=== PATIENT | female | born 1965 | race Caucasian/White ===

== ENCOUNTER 2017-03-14 22:35 | Inpatient (IN) | payer OTHER ==
--- NOTE | 2017-03-14 23:08 | EDPHY ---
H & P Stated Complaint: psych eval, sent from crisis for hallucinations, anxiety, chest tightness Time Seen by Provider: 03/14/17 22:45 HPI/ROS: HPI The patient presents from the mental health crisis Center for worsening auditory and visual hallucinations. She says throughout the entire summer she has been having hallucinations which are intermittent though have gotten progressively worse. She says they have been more intense over the last few days and that is what prompted her to be evaluated. She has been working with her outpatient psychiatrist to adjust her medications which she takes for bipolar 1 disorder, however her hallucinations have persisted. She hears voices chattering, sees shadows and felt that her house was breathing the other day. She denies any SI or HI. She has a history have hallucinations before, last episode was about 7 years ago. She says she is sleeping very little, approximately 2/7 nights a week and is otherwise follow-up and feels anxious. She occasionally has chest tightness throughout her chest when she is feeling anxious which is associated with palpitations. She is not feeling this currently REVIEW OF SYSTEMS Constitutional: No fever, no chills. Eyes: No discharge. ENT: No sore throat. Cardiovascular: No chest pain, no palpitations. Respiratory: No cough, no shortness of breath. Gastrointestinal: No abdominal pain, no vomiting. Genitourinary: No hematuria. Musculoskeletal: No back pain. Skin: No rashes. Neurological: No headache. PMHx: Bipolar 1 disorder on medication, diagnosed with paroxysmal SVT in July of 2016, started on diltiazem Soc Hx: Lives at home with her 30-year-old son who has autism, she does not work outside the home, occasional alcohol use, last this weekend, increasing tobacco use since the beginning of the summer when her hallucinations began, denies any drug use PHYSICAL General Appearance: Alert, no distress Eyes: Pupils equal and round no pallor or injection ENT, Mouth: Mucous membranes moist Respiratory: There are no retractions, lungs are clear to auscultation Cardiovascular: Regular rate and rhythm Gastrointestinal: Abdomen is soft and non-tender, no masses, bowel sounds normal Neurological: A&O, moves all extremities Skin: Warm and dry, no rashes Musculoskeletal: Neck is supple non tender Extremities: symmetrical, full range of motion Psychiatric: Patient is oriented X 3, there is no agitation Source: Patient Exam Limitations: No limitations - Personal History LMP (Females 10-55): Hysterectomy Current Tetanus/Diphtheria Vaccine: Unsure - Medical/Surgical History Hx Asthma: No Hx Chronic Respiratory Disease: No Hx Diabetes: No Hx Cardiac Disease: Yes Hx Renal Disease: No Hx Cirrhosis: No Hx Alcoholism: No Hx HIV/AIDS: No Hx Splenectomy or Spleen Trauma: No Other PMH: Breast Ca, PSVT - Social History Smoking Status: Light smoker Constitutional: Initial Vital Signs Temperature (C) 36.9 C 03/14/17 22:37 Heart Rate 88 03/14/17 22:37 Respiratory Rate 16 03/14/17 22:37 Blood Pressure 160/90 H 03/14/17 22:37 O2 Sat (%) 94 03/14/17 22:37 O2 Delivery Mode Room Air Allergies/Adverse Reactions: PLASTIC TAPE Allergy (Mild, Uncoded 03/14/17 22:43) Itching Home Medications: Medication Instructions Recorded ARIPiprazole [Abilify 2 mg (*)] 2 mg PO DAILY 03/14/17 Diltiazem [Cardizem Immediate 30 mg PO 03/14/17 Release] Ondansetron HCl 4 mg PO 03/14/17 Pantoprazole Sodium [Protonix] 40 mg PO 03/14/17 Promethazine HCl 25 mg PO 03/14/17 Ranitidine HCl 150 mg PO 03/14/17 SIMVASTATIN 10 mg PO 03/14/17 Temazepam [Restoril 15 MG (*)] 15 mg PO HSPRN PRN 03/14/17 Tizanidine HCl 4 mg PO 03/14/17 Topiramate [TOPIRAMATE] 50 mg PO BID 03/14/17 clonIDINE [Catapres (*)] 0.1 mg PO 03/14/17 traMADol [Ultram 50 mg (*)] 50 mg PO TID PRN 03/14/17 Medical Decision Making - Diagnostics EKG Interpretation: EKG: Complete interpretation has been separately recorded in the [employer] archive. Summary impression: Normal sinus rhythm Imaging Results: Imaging Impressions Chest X-Ray 03/14/17 22:57 Impression: Nothing acute. Imaging: I viewed and interpreted images myself Differential Diagnosis: This is a 51-year-old female with bipolar disorder, paroxysmal SVT on diltiazem who presents with worsening auditory and visual hallucinations for the last several months, worse over the last 1 week. She does have some chest tightness intermittently associated with anxiety. Differential diagnosis includes worsening bipolar disorder with psychosis, insomnia with psychosis, less likely drug abuse. Plan for basic labs, cardiac workup, mental health evaluation. In the ER, labs and studies were unremarkable. The patient did not require any medications. We placed the patient on an M1 hold given her hallucinations. She was seen by the mental health team and was accepted by Dr. Montoya at [address] [place] [address] for inpatient hospitalization. - Data Points Laboratory Results: Laboratory Results 03/14/17 23:10 03/14/17 23:10 03/14/17 03/14/17 03/14/17 23:10 23:10 23:00 WBC 10.34 10^3/uL H 10^3/uL (3.80-9.50) RBC 4.62 10^6/uL 10^6/uL (4.18-5.33) Hgb 14.1 g/dL g/dL (12.6-16.3) Hct 41.7 % % (38.0-47.0) MCV 90.3 fL fL (81.5-99.8) MCH 30.5 pg pg (27.9-34.1) MCHC 33.8 g/dL g/dL (32.4-36.7) RDW 12.7 % % (11.5-15.2) Plt Count 310 10^3/uL 10^3/uL (150-400) MPV 9.2 fL fL (8.7-11.7) Neut % (Auto) 52.8 % % (39.3-74.2) Lymph % (Auto) 36.0 % % (15.0-45.0) Osborne % (Auto) 8.2 % % (4.5-13.0) Eos % (Auto) 1.8 % % (0.6-7.6) Baso % (Auto) 1.0 % % (0.3-1.7) Nucleat RBC Rel Count 0.0 % % (0.0-0.2) Absolute Neuts (auto) 5.46 10^3/uL 10^3/uL (1.70-6.50) Absolute Lymphs (auto) 3.72 10^3/uL H 10^3/uL (1.00-3.00) Absolute Monos (auto) 0.85 10^3/uL H 10^3/uL (0.30-0.80) Absolute Eos (auto) 0.19 10^3/uL 10^3/uL (0.03-0.40) Absolute Basos (auto) 0.10 10^3/uL 10^3/uL (0.02-0.10) Absolute Nucleated RBC 0.00 10^3/uL 10^3/uL (0-0.01) Immature Gran % 0.2 % % (0.0-1.1) Immature Gran # 0.02 10^3/uL 10^3/uL (0.00-0.10) Sodium 140 mEq/L mEq/L (134-144) Potassium 3.7 mEq/L mEq/L (3.5-5.2) Chloride 110 mEq/L mEq/L (97-110) Carbon Dioxide 19 mEq/l L mEq/l (22-31) Anion Gap 11 mEq/L mEq/L (8-16) BUN 11 mg/dL mg/dL (7-23) Creatinine 0.7 mg/dL mg/dL (0.6-1.0) Estimated GFR > 60 Glucose 89 mg/dL mg/dL (70-100) Calcium 9.8 mg/dL mg/dL (8.5-10.4) Troponin I < 0.012 ng/mL ng/mL (0.000-0.034) Urine Opiates Screen NEGATIVE (NEGATIVE) Urine Barbiturates NEGATIVE (NEGATIVE) Ur Phencyclidine Scrn NEGATIVE (NEGATIVE) Ur Amphetamine Screen NEGATIVE (NEGATIVE) U Benzodiazepines Scrn NON-NEGATIVE H (NEGATIVE) Urine Cocaine Screen NEGATIVE (NEGATIVE) U Marijuana (THC) Screen NON-NEGATIVE H (NEGATIVE) Ethyl Alcohol < 10 mg/dL mg/dL (0-10) Medications Given: Clonidine (Catapres) 0.1 mg PO HS PRN PRN Reason: ANXIETY/SLEEP Stop: 09/11/17 02:53 Last Admin: 03/15/17 03:30 Dose: 0.1 mg Temazepam (Restoril) 15 mg PO HS PRN PRN Reason: Sleep/Insomnia Stop: 09/11/17 02:53 Last Admin: 03/15/17 03:30 Dose: 15 mg Tramadol HCl (Ultram) 25 mg PO TID PRN PRN Reason: Pain, Moderate Able to Take PO Stop: 09/11/17 02:53 Last Admin: 03/15/17 03:26 Dose: 25 mg Departure - Departure Disposition: [facility] IP Clinical Impression: Acute psychosis, Bipolar 1 disorder, Hallucinations Chest pain Qualifiers: Chest pain type: unspecified Qualified Code(s): R07.9 - Chest pain, unspecified Condition: Fair
[2017-03-14 23:19] LABS: % IMMATURE GRANULYOCYTES 0.2 % (0.0-1.1); ABSOLUTE IMMATURE GRANULOCYTES 0.02 10^3/uL (0.00-0.10); ADD DIFF? NO; ADD MORPH? NO; ADD SCAN? NO; ATYPICAL LYMPHOCYTE FLAG 10 (0-99); FRAGMENT RBC FLAG 0 (0-99); HEMATOCRIT 41.7 % (38.0-47.0); HEMOGLOBIN 14.1 g/dL (12.6-16.3); LEFT SHIFT FLG 0 (0-99); LIPEMIA HEMOLYSIS FLAG 90 (0-99); MEAN CELL HEMOGLOBIN 30.5 pg (27.9-34.1); MEAN CELL HEMOGLOBIN CONCENTR. 33.8 g/dL (32.4-36.7); MEAN CELL VOLUME 90.3 fL (81.5-99.8); MEAN PLATELET VOLUME 9.2 fL (8.7-11.7); PLATELET CLUMPS FLAG 0 (0-99); PLATELET COUNT 310 10^3/uL (150-400); RED BLOOD CELL COUNT 4.62 10^6/uL (4.18-5.33); RED CELL DISTRIBUTION WIDTH 12.7 % (11.5-15.2)
--- NOTE | 2017-03-14 23:24 | CPEKG ---
Heart Rate: 82 RR Interval: 732 P-R Interval: 176 QRSD Interval: 78 QT Interval: 360 QTC Interval: 421 P [place]: 50 QRS [place]: 14 T Wave [place]: 71 EKG Severity - NORMAL ECG - EKG Impression: SINUS RHYTHM Electronically Signed By: Maude Aragon 16-Mar-2017 08:44:37
[2017-03-14 23:31] LABS: ANION GAP 11 mEq/L (8-16); CALCIUM 9.8 mg/dL (8.5-10.4); CARBON DIOXIDE 19 mEq/l (22-31); CHLORIDE 110 mEq/L (97-110); CREATININE 0.7 mg/dL (0.6-1.0); ETHANOL SERUM < 10 mg/dL (0-10); GLOMERULAR FILTRATION RATE > 60; GLUCOSE 89 mg/dL (70-100); POTASSIUM 3.7 mEq/L (3.5-5.2); SODIUM 140 mEq/L (134-144)
[2017-03-14 23:43] LABS: TROPONIN I < 0.012 ng/mL (0.000-0.034)
[2017-03-15] MEDS ORDERED: traMADol 50 MG TAB PO PRN (02:54)
[2017-03-15] MEDS ORDERED: TEMAZEPAM 15 MG CAP PO PRN (02:54)
[2017-03-15] MEDS ORDERED: ACETAMINOPHEN 325 MG TAB PO PRN (02:57)
[2017-03-15] MEDS ORDERED: MAGNESIUM HYDROXIDE 30 ML UDCUP PO PRN (02:57)
[2017-03-15] MEDS ORDERED: MELATONIN 3 MG TAB PO PRN (02:57)
[2017-03-15] MEDS ORDERED: PRAVASTATIN SODIUM 20 MG TAB PO SCH ×2 (09:00→21:00)
[2017-03-15] MEDS ORDERED: TOPIRAMATE 25 MG TAB PO SCH (09:00)
[2017-03-15] MEDS ORDERED: PROMETHAZINE HCL 25 MG TAB PO PRN (09:02)
[2017-03-15] MEDS ORDERED: SUMAtriptan 6 MG/0.5 ML VIAL SC PRN ×2 (09:04→09:13)
[2017-03-15] MEDS ORDERED: ALBUTEROL HFA ANES ONLY 200 PUFFS/8.5 GM MDI IH PRN (09:05)
[2017-03-15] MEDS ORDERED: ALBUTEROL 200 PUFFS/18 GM MDI IH PRN (09:13)
--- NOTE | 2017-03-15 09:40 | BAPA ---
[f rep st] ADMISSION PSYCHIATRIC ASSESSMENT DATE OF SERVICE: 03/15/2017 CHIEF COMPLAINT: The patient is a 51-year-old female with bipolar mood disorder , whose chief complaint to me today is "it started this summer." HISTORY OF PRESENT ILLNESS: The patient has a history of bipolar mood disorder dating back to at least 1995, but probably all of her adult life. She relates that she has had multiple hospitalizations for her bipolar mood disorder. I check our chart back to the beginning of the [employer] records--I am unable to access the [facility] [employer] [facility] [facility] today--and I do not find any previous inpatient psychiatric hospital stays with us for this patient. She indicates that she has been here in the past. It may have been prior to 2009. She is followed by [facility], and relates that starting early this summer, her mood became elevated. She says there was no clear exacerbating cause. Her daughter did get , just this past weekend, and she has been involved in preparations for this, so there was at least that change in her life over the past few months. At any rate, she has been experiencing decreased need for sleep, and increased energy. She has also been experiencing abnormal perceptions. She tells me that she hears "whispers" inside her head at times. She feels that "my house is breathing." She has some wavy lines in her vision. She has migraine headaches and admits that some of this might be related to her migraine headaches. She came from her residence to the emergency room, and was evaluated. She was thought to be significantly disabled. She has denied dangerousness to herself or others, but she was thought to be ill enough to benefit significantly from an inpatient hospital stay. CURRENT REVIEW OF SYSTEMS: She describes her mood currently at "high." She tells me that she slept last night, but prior to this had not slept for 3 days. Her energy is elevated. Her concentration is down. Her appetite has been down and she has lost weight. As noted, she endorses auditory hallucinations including whispers. She endorses wavy lines in her vision and odd things out of the corner of her eye as visual hallucinations. She denies suicidal thinking. She denies homicidal thinking. She initially endorses feeling anxious and nervous, but as we talk about it, she clarifies that she feels "restless." She is not scared of anything in particular, and is not having more anxiety, but more agitation and internal energy that she does not know what to do with. SOCIAL HISTORY: She endorses smoking cigarettes. She had quit, but with this manic exacerbation, started re-smoking cigarettes about 1/2 pack per day. She denies alcohol use. She admits to using cannabis 1 time. Her urine tox screen was positive for cannabis. ALLERGIES: She denies any medication allergies, but says she has allergy to tape. CURRENT MEDICATIONS: She is on multiple medications, and I do not think I have a complete list at this point in time. She is on 300 mg of Lamictal at bedtime , according to her history, but according to the chart, it is 200 mg. she is on temazepam, Imitrex injections, and multiple GI medicines, as well as multiple antihypertensive medicines. I will be working on clarifying her medication regimen. PAST MEDICAL HISTORY: She has past medical history of multiple problems. She had breast cancer and cholecystitis with a cholecystectomy in 2009. Her breast cancer was in 2009 and she had bilateral mastectomies and reconstructive surgery. She has cervical pain, and she tells me that she may need a neck fusion at some point in time. She has history of migraine headaches. There is a history of hypertension. She has a history of a pulmonary embolus. She is also listed as having reactive airway disease. She has had 5 pregnancies, 3 live births, and 2 miscarriages. PAST PSYCHIATRIC HISTORY: This is remarkable for the diagnosis of bipolar mood disorder in 1995. She is currently followed at the [facility]. MENTAL STATUS EXAMINATION: She is awake and alert. She conducts the interview lying down on her back and it is difficult for her to sit up. Her speech is slightly rapid, and a little bit pressured, but I am able to interrupt her. She has many lapses in memory that she notices, not being able to remember certain names, or certain details and she gets frustrated by this during the interview. Her speech style is vague and impressionistic. Her thought processes are circumstantial, and she takes a very long time to get to a point, but she does usually get to the point. She does not have tangentiality, nor flight of ideas. She does not appear to be responding to internal stimuli during the interview and denies them when I ask. Her insight and judgment are both poor. IMPRESSION: The patient is a 51-year-old female with bipolar mood disorder and multiple medical problems. We will admit her and see if we can simplify her medication regimen, which currently involves multiple different medications, taken multiple different ways, at multiple different times of each day. By her history, she has usually stabilized well when in an inpatient setting, we hope that will again be the case today. DIAGNOSES: 1. Bipolar mood disorder, most recent episode manic. 2. Nicotine dependence. 3. Cannabis abuse. 4. History of breast cancer. 5. Chronic cervical pain. 6. G5, P3, SAB2. 7. Migraine headaches. 8. History of pulmonary embolus. 9. Reactive airway disease. 10. Hypertension. 11. Gastrointestinal problems. PLAN: 1. Admit on 72-hour mental health hold that expires 03/18/2017 at 0045. 2. Collect collateral information. 3. Work on restarting medications and simplifying, if possible. 4. Coordinate with outpatient care team about ongoing care. /[id number]/MODL MTDD
[2017-03-15] MEDS: PANTOPRAZOLE SODIUM 40 MG TAB PO SCH (10:39)
[2017-03-15] MEDS: MAG HYDROX/AL HYDROX/SIMETH 30 ML UDCUP PO PRN (10:39)
[2017-03-15] MEDS: ARIPiprazole 5 MG TAB PO SCH (11:34)
--- NOTE | 2017-03-15 16:31 | BCON ---
[f rep st] BEHAVIORAL HEALTH CONSULTATION INTERNAL MEDICINE CONSULTATION DATE OF CONSULTATION: 03/15/2017 REFERRING PHYSICIAN: Terence Montoya MD REASON FOR REFERRAL: Medical clearance for inpatient behavioral health stay. HISTORY OF PRESENT ILLNESS: This patient came to the emergency department from the [facility] with worsening auditory and visual hallucinations. These had been getting worse through the summer, and acutely worse over the previous few days. She had medication changes per her outpatient psychiatrist including the initiation of topiramate. She was evaluated by the mental health team and admitted for further psychiatric care. She currently complains of feeling numbness, especially bilaterally below the elbows and in her legs. She also has tingling and is unclear whether or not this has gotten worse since the initiation of topiramate. She describes migraine headaches, but none recently, with bizarre neurologic effects for which she is under the care of a neurologist. She thinks the numbness may be due to cervical spine disease, for which she thinks she will need surgery at some point. PAST MEDICAL HISTORY: 1. Breast cancer. 2. Bipolar disorder. 3. Paroxysmal supraventricular tachycardia. 4. Migraine headaches. 5. Cervical spine degenerative disease. 6. Possible peripheral neuropathy. 7. History of pulmonary embolus. 8. Reactive airways disease. 9. Hypertension. 10. Recent difficulty swallowing. 11. Dyslipidemia. PAST SURGICAL HISTORY: 1. Bilateral mastectomy and breast reconstruction. 2. Hysterectomy due to family history of cancer, done at the same time as the mastectomies. 3. Cholecystectomy. She reports that the gallbladder was nicked when the hysterectomy was done. 4. Upper endoscopy. MEDICATIONS: Prior to admission: 1. Aripiprazole 2 mg p.o. daily. 2. Diltiazem 30 mg p.o., unclear, perhaps t.i.d. or q.i.d. 3. Ondansetron 4 mg p.o. p.r.n. 4. Pantoprazole 40 mg p.o. daily. 5. Promethazine 25 mg p.o. daily p.r.n. 6. Ranitidine 150 mg p.o. twice daily. 7. Simvastatin 10 mg p.o. daily. 8. Temazepam 15 mg p.o. at bedtime p.r.n. 9. Tizanidine 4 mg p.o. daily. 10. Topiramate 50 mg p.o. b.i.d. 11. Clonidine 0.1 mg p.o. b.i.d. 12. Tramadol 50 mg p.o. t.i.d. p.r.n. ALLERGIES: There is an allergy listed to plastic tape. SOCIAL HISTORY: She lives at home with her 30-year-old son who has autism. She does not work. She has occasional alcohol use. She has recently resumed smoking, coincident with what appears to be a flare of her bipolar disorder. FAMILY HISTORY: Noncontributory other than history of cancer. REVIEW OF SYSTEMS: She reports difficulty swallowing, and is at the point where she needs to crush pills that she takes at night; otherwise, she will regurgitate them; she says if they are actual pills, they get stuck in her esophagus. However, she reports that she has had upper endoscopy recently with nothing abnormal seen. She reports numbness to light touch and even to pinprick in her upper extremities below the elbow and in her lower extremities below the knees. She reports very little appetite and weight loss in recent weeks. She reports normal bowel movements, however, and as long as she crushes her pills at night, she does not have vomiting. She denies dysuria or urinary frequency. She denies cough or dyspnea though she had a sensation of chest tightness while in the emergency department. She reports she often feels cold but does not feel hot. She reports right knee pain and swelling; she says she twisted it during her daughter's wedding last weekend. It has not been getting better or worse, but staying constant. Otherwise, a 10-point review of systems is negative. PHYSICAL EXAM: VITAL SIGNS: Blood pressure at 3:00 this morning was 151/80, heart rate was 77, respiratory rate was 14, oxygen saturation was 95% on room air. Temperature was 36.9 degrees centigrade. Her weight is 69.5 kg for a body mass index of 25.5. GENERAL: This is a well-nourished, well-developed woman, appears her chronologic age. Cooperative and in no acute distress. HEENT: Extraocular movements are intact. Pupils are equal, round, and reactive to light. Mucous membranes are moist. Dentition is in good condition. She has a mildly crowded airway, Mallampati class 2. NECK: Supple. There is possible thyromegaly on the left lobe which feels nodular. HEART: There is a regular rate and rhythm with no murmurs, rubs, or gallops. LUNGS: Clear to auscultation bilaterally. ABDOMEN: Soft, nontender, nondistended with normoactive bowel sounds. EXTREMITIES: There is no cyanosis , clubbing, or edema. Radial and dorsalis pedis pulses are 2+ bilaterally. NEUROLOGIC: She is alert and oriented x3. Cranial nerves 2-12 are grossly intact. Her hand apprentice technician on the left is 4/5. There is otherwise no focal weakness. She reports no sensation to palpation in her lower extremities below the knees. Gait is within normal limits. LABORATORY STUDIES: Drawn in the emergency department: Serum chemistry revealed a slightly low carbon dioxide at 19, and otherwise was within normal limits. Troponin-I was undetectable. Hematology revealed an elevated white blood cell count at 10.34. There was no left shift. There was a predominance of lymphocytes and monocytes. Toxicology screen in the serum was negative for ethyl alcohol, and the urine was non-negative for benzodiazepines and marijuana. ASSESSMENT/RECOMMENDATIONS: 1. Mental health issues. Pending further evaluation and management per Psychiatry and the mental health team. 2. Weight loss and report of a goiter that she says was seen on cervical spine imaging. I will add a TSH onto the labs that were drawn yesterday to rule out thyroid disease as contributing to either the neuropathic symptoms or her mental status. 3. Neuropathy. Unclear whether this is cervical or peripheral. In either case , it seems atypical. I will add a B12 onto labs that were drawn yesterday. 4. Hypertension. Advise continuation of diltiazem as well as clonidine. If her blood pressure remains elevated or if she has elevated heart rate, further evaluation and altering medications might be indicated. The diltiazem has not been prescribed on her home medication list; 30 mg immediate release daily would not be adequate medication. I will discuss this further with the patient and order it as per her usual prescription. 5. Supraventricular tachycardia. Currently without symptoms. 6. Neuropathic symptoms which are atypical, but she has distinct muscle weakness in the left hand, likely component of the cervical spine degenerative disc disease. Regarding this as well as migraines and cervical spine disease, she can follow up with her outpatient neurologist, Dr. Simpson. It is conceivable that the topiramate has been adding to her subjective symptoms of tingling. 7. Right knee pain, status post injury on the weekend. It does not appear to be impairing her mobility. Continue tramadol on an as-needed basis, and she can follow up with primary care or see an orthopedist after her discharge. 8. I see no medical contraindications to this patient's continued stay in the inpatient behavioral health unit or to any psychiatric medications or procedures. Thank you very much for including me in the care of this patient. Please do not hesitate to contact me or the hospitalist service should there be need for further medical evaluation. /[id number]/MODL MTDD
[2017-03-15] MEDS ORDERED: lamoTRIgine 100 MG TAB PO SCH ×2 (21:00)
[2017-03-15] MEDS ORDERED: RANITIDINE HCL 150 MG/10 ML UDCUP PO PRN (21:00)
[2017-03-15] MEDS: TOPIRAMATE 25 MG PO SCH (21:13)
[2017-03-15] MEDS: DILTIAZEM CD 120 MG CAP PO SCH (21:14)
[2017-03-15] MEDS: RANITIDINE HCL 150 MG/10 ML UDCUP PO PRN (21:17)
[2017-03-15] MEDS: ONDANSETRON DISINTEGRATING 4 MG TAB PO PRN (21:17)
[2017-03-15] MEDS: PRAVASTATIN SODIUM 10 MG TAB PO SCH (21:19)
[2017-03-16] MEDS: PANTOPRAZOLE SODIUM 40 MG TAB PO SCH (08:40)
[2017-03-16] MEDS: RANITIDINE HCL 150 MG/10 ML UDCUP PO PRN ×2 (08:43→20:36)
[2017-03-16] MEDS ORDERED: PANTOPRAZOLE SODIUM 40 MG TAB PO SCH (09:00)
[2017-03-16] MEDS: DILTIAZEM CD 120 MG CAP PO SCH (09:26)
[2017-03-16] MEDS: ARIPiprazole 5 MG TAB PO SCH (09:26)
[2017-03-16] MEDS ORDERED: OLANZapine 2.5 MG TAB PO PRN (11:06)
--- NOTE | 2017-03-16 11:17 | SOAPPROG ---
SOAP Progress Note Assessment/Plan: Assessment: Bipolar Mood Disorder, MRE Mixed (v manic) Ms. Acevedo describes mixed benedict today. Sadness plus agitation. She has tried lithium in the past and found it was not a good choice for her because it increased the frequency of her migraine headaches. Depakote and Tegretol are challenging to use when taking lamotrigine. Try olanzapine at HS, and discontinue aripiprazole. Consider cross tapering back to Abilify once stable. Increase lamotrigine, goal dose is 300 mg HS. Plan: Add olanzapine 5 mg HS and a prn dose as well Tramadol for chronic neck pain Increase lamotrigine to 225 mg at HS. Goal dose is 300 mg HS Consider Voluntary status when [facility] expires. 03/16/17 11:30 Subjective: "Not having a good day." "I'm more manic." "I'm pissed off." "My emotions don't match up." "Why am I fine one moment and not the next?" Slept well last night but does not feel well today. Endorses sadness and depressed mood but then feels manic/elevated. Discussed Mixed episodes of Bipolar, and Ms. Acevedo thinks this could be what she is going through. Abilify has not helped so far. Discussed difficulty finding good dose of Abilify because of it's mechanism of action as a partial agonist. Discussed she might do better with a more classic dopamine antagonist. We agree to try olanzapine. She has been on this in the past and it has helped mood. It does increase appetite so we will not want to continue this indefinitely. Pt also reports that she has had low TSH tests in the past. This can be from stress. Hyperthyroidism unlikely, but will recheck. Objective: Vital Signs Temp Pulse Resp BP Pulse Ox 36.5 C 67 14 115/66 95 03/16/17 08:34 03/16/17 09:26 03/16/17 08:34 03/16/17 09:26 03/16/17 08:34 Medications Generic Name Dose Route Start Last Admin Trade Name Freq PRN Reason Stop Dose Admin Clonidine 0.1 mg 03/15/17 16:00 03/16/17 09:27 Catapres PO 09/11/17 15:59 0.1 mg TID ASHLEIGH Diltiazem HCl 120 mg 03/15/17 15:45 03/16/17 09:26 Cardizem Er Q24hr PO 09/11/17 15:44 120 mg DAILY ASHLEIGH Lamotrigine 200 mg 03/16/17 11:08 Lamictal PO 09/11/17 20:59 HS [facility] Pravastatin Sodium 10 mg 03/15/17 21:00 03/15/17 21:19 Pravachol PO 09/11/17 20:59 10 mg HS [facility] Pantoprazole Sodium 40 mg 03/15/17 10:30 03/16/17 08:40 Protonix PO 09/11/17 10:29 40 mg DAILY ASHLEIGH Ranitidine HCl 150 mg 03/15/17 10:39 03/16/17 08:43 Zantac PO 09/11/17 10:38 150 mg BID PRN GI DISTRESS Topiramate 25 mg 03/15/17 21:00 03/15/17 21:13 Topamax Sprinkles PO 09/11/17 20:59 25 mg HS [facility] MSE Awake, alert, well groomed and pleasant with me today. Speech is rapid and a little pressured today, but more interruptible than yesterday Thoughts processes linear today Does not appear to respond to internal stimuli during interview with me today. Fair insight and judgment ICD10 Worksheet Patient Problems: Problems Problem Status Onset Acute psychosis Acute Bipolar 1 disorder Acute Chest pain Acute Hallucinations Acute
[2017-03-16] MEDS: traMADol 50 MG TAB PO PRN (13:06)
[2017-03-16] MEDS: ONDANSETRON DISINTEGRATING 4 MG TAB PO PRN (20:36)
[2017-03-16] MEDS: OLANZapine 5 MG TAB PO SCH (21:09)
[2017-03-16] MEDS: lamoTRIgine 25 MG TAB PO SCH (21:09)
[2017-03-16] MEDS: lamoTRIgine 100 MG TAB PO SCH (21:09)
[2017-03-16] MEDS: TOPIRAMATE 25 MG PO SCH (21:09)
[2017-03-16] MEDS: PRAVASTATIN SODIUM 10 MG TAB PO SCH (21:09)
[2017-03-17] MEDS: RANITIDINE HCL 150 MG/10 ML UDCUP PO PRN ×2 (06:31→20:47)
[2017-03-17] MEDS: DILTIAZEM CD 120 MG CAP PO SCH (08:38)
[2017-03-17] MEDS: PANTOPRAZOLE SODIUM 40 MG TAB PO SCH (08:38)
[2017-03-17] MEDS: MAG HYDROX/AL HYDROX/SIMETH 30 ML UDCUP PO PRN (09:09)
--- NOTE | 2017-03-17 15:20 | SOAPPROG ---
SOAP Progress Note Assessment/Plan: Assessment: 51yo CF w/hx of BMD/mixed mood sxs 03/17/17 17:54 per staff, slept 8.5hr. asked for AG privs. attending gps reports not feeling she will be ready for d/c on 03/19. wants to get as well as possible while here, leyda since has already arranged for care of her 30yo autistic son at home. in past when thought she felt okay, returned home, then "crashed" b/c actually wasn't okay. feels still with affective lability. "still out of control with my emotions". ie /when felt she had too much food at lunch, began to cry about homeless people. also found self tearful when working on art project depicting trees, but "I don' t feel connected to that emotion" and notes no reason to be tearful over tree art. reports no s/e to zyprexa which started last pm. no AH since starting this. shared that she has +hx of severe migraine GODINEZ, but has had less migraines since inpt here. has had EEG outpt, which was neg. b/c experienced periods of "zoning out" or pausing mid-sentence then continuing. c/o experiencing TV/lights being "irritatingly brighter" and also "hypersensitive to smells". notes episodically experiencing a "woosh" feeling internally, as if just having moved backwards or dropping/falling. MSE: casually dressed, engaged, nml rate/vol speech, talkative but not pressured , good eye contact, mood "positive but anxious", affect full, thoughts linear with expressed somatic concerns as above, no si/hi, denied any AH today or since starting zyprexa. has recently experienced +VH of figure on R side ( thinks only occurs on R) for few seconds, startled her but not scary, i/j- seem intact, PLAN: cont current meds, cont zyprexa which was added yesterday. overall w/ improving BMD sxs and psychosis additionally has neurologic complaints, ?pseudobulbar affect sxs, +hx atypical migraine, ?atyp sz , reports neg eeg but consider sz monitor unit, etc or r/o conversion d /o. consider d/w outpt neurologist or neuro consult B12 244. low nml. will add po for few days. Objective: Vital Signs Temp Pulse Resp BP Pulse Ox 36.9 C 60 15 122/61 H 96 03/17/17 00:30 03/17/17 08:00 03/17/17 00:30 03/17/17 08:00 03/17/17 00:30 - Pending Discharge Pending Discharge Within 24 Hours: No Pending Discharge Within 48 Hours: No ICD10 Worksheet Patient Problems: Problems Problem Status Onset Acute psychosis Acute Bipolar 1 disorder Acute Chest pain Acute Hallucinations Acute
[2017-03-17] MEDS: traMADol 50 MG TAB PO PRN (18:17)
[2017-03-17] MEDS: ONDANSETRON DISINTEGRATING 4 MG TAB PO PRN (20:47)
[2017-03-17] MEDS: OLANZapine 5 MG TAB PO SCH (21:03)
[2017-03-17] MEDS: lamoTRIgine 100 MG TAB PO SCH (21:03)
[2017-03-17] MEDS: PRAVASTATIN SODIUM 10 MG TAB PO SCH (21:03)
[2017-03-17] MEDS: lamoTRIgine 25 MG TAB PO SCH (21:03)
[2017-03-17] MEDS: TOPIRAMATE 25 MG PO SCH (21:03)
[2017-03-18] MEDS: PANTOPRAZOLE SODIUM 40 MG TAB PO SCH (08:47)
[2017-03-18] MEDS: DILTIAZEM CD 120 MG CAP PO SCH (08:47)
[2017-03-18] MEDS: CYANO/VITAMIN B12 1000 MCG TAB PO SCH (08:48)
[2017-03-18] MEDS ORDERED: traMADol 50 MG TAB PO PRN (14:43)
[2017-03-18] MEDS: traMADol 50 MG TAB PO PRN (16:59)
[2017-03-18] MEDS: RANITIDINE HCL 150 MG/10 ML UDCUP PO PRN (20:48)
[2017-03-18] MEDS: ONDANSETRON DISINTEGRATING 4 MG TAB PO PRN (20:48)
[2017-03-18] MEDS: OLANZapine 5 MG TAB PO SCH (21:10)
[2017-03-18] MEDS: lamoTRIgine 100 MG TAB PO SCH (21:11)
[2017-03-18] MEDS: PRAVASTATIN SODIUM 10 MG TAB PO SCH (21:11)
--- NOTE | 2017-03-19 00:34 | SOAPPROG ---
SOAP Progress Note Assessment/Plan: Assessment: 51yo CF w/hx of BMD/mixed mood sxs 03/17/17 17:54 per staff, slept 8.5hr. asked for AG privs. attending gps reports not feeling she will be ready for d/c on 03/19. wants to get as well as possible while here, leyda since has already arranged for care of her 30yo autistic son at home. in past when thought she felt okay, returned home, then "crashed" b/c actually wasn't okay. feels still with affective lability. "still out of control with my emotions". ie /when felt she had too much food at lunch, began to cry about homeless people. also found self tearful when working on art project depicting trees, but "I don' t feel connected to that emotion" and notes no reason to be tearful over tree art. reports no s/e to zyprexa which started last pm. no AH since starting this. shared that she has +hx of severe migraine GODINEZ, but has had less migraines since inpt here. has had EEG outpt, which was neg. b/c experienced periods of "zoning out" or pausing mid-sentence then continuing. c/o experiencing TV/lights being "irritatingly brighter" and also "hypersensitive to smells". notes episodically experiencing a "woosh" feeling internally, as if just having moved backwards or dropping/falling. MSE: casually dressed, engaged, nml rate/vol speech, talkative but not pressured , good eye contact, mood "positive but anxious", affect full, thoughts linear with expressed somatic concerns as above, no si/hi, denied any AH today or since starting zyprexa. has recently experienced +VH of figure on R side ( thinks only occurs on R) for few seconds, startled her but not scary, i/j- seem intact, PLAN: cont current meds, cont zyprexa which was added yesterday. overall w/ improving BMD sxs and psychosis additionally has neurologic complaints, ?pseudobulbar affect sxs, +hx atypical migraine, ?atyp sz , reports neg eeg but consider sz monitor unit, etc or r/o conversion d /o. consider d/w outpt neurologist or neuro consult B12 244. low nml. will add po for few days. 03/18/17 17:25 reports had some heartburn this am. no AH since starting zyprexa, and no s/e. "spacey, floaty" episodes still occurring reports she "smiled and giggled" when talking about [place] flooding to a peer, found this an inappropriate affect for the content of conversation and didn't think it funny, but again noting emotional disconnect with affect. again reiterates she does not feel ready for d/c tomorrow. denied any other med s/e. mse: cooperative, engaged, good ec, nml speech, mood "good", affect appropriate to conversation, thoughts linear but w/somatic concerns as noted, no si/hi, and reports no ah/vh today. i/j intact PLAN: incr lamictal to 300mg qhs which was reported prior home dose and reports compliant d/c topamax 25mg cont zyprexa 5mg hs. plan resched appt 03/19 and cont inpt for another day or 2, not feeling ready emotionally and with med changes, possible neuro consult Objective: Vital Signs Temp Pulse Resp BP Pulse Ox 36.7 C 64 16 110/64 98 03/18/17 00:30 03/18/17 15:54 03/18/17 15:54 03/18/17 21:11 03/18/17 15:54 - Time Spent With Patient Time Spent With Patient: 14min - Pending Discharge Pending Discharge Within 24 Hours: No Pending Discharge Within 48 Hours: No ICD10 Worksheet Patient Problems: Problems Problem Status Onset Acute psychosis Acute Bipolar 1 disorder Acute Chest pain Acute Hallucinations Acute
[2017-03-19] MEDS: RANITIDINE HCL 150 MG/10 ML UDCUP PO PRN ×2 (08:43→20:14)
[2017-03-19] MEDS: DILTIAZEM CD 120 MG CAP PO SCH (10:03)
[2017-03-19] MEDS: PANTOPRAZOLE SODIUM 40 MG TAB PO SCH (10:03)
[2017-03-19] MEDS: CYANO/VITAMIN B12 1000 MCG TAB PO SCH (10:03)
[2017-03-19] MEDS: traMADol 50 MG TAB PO PRN ×2 (10:59→18:55)
--- NOTE | 2017-03-19 11:08 | SOAPPROG ---
SOAP Progress Note Assessment/Plan: Assessment: Bipolar Mood Disorder, MRE Mixed (v manic) Ms. Acevedo has improved. Externally her affect appears to be back to normal. Internally, her mood remains a problem, especially with lability of mood which she finds uncomfortable and distressing. No psychosis We will try increasing olanzapine to see if this helps stabilize the mood any better. Plan: Increase olanzapine to 7.5 mg HS Tramadol for chronic neck pain Continue lamotrigine 300 mg at HS. Decrease clonidine to 0.1 mg BID OK for AG. OK to sharve. Voluntary status 03/19/17 11:14 Subjective: "I literally have a headache every single day." "I'm worried about getting depressed." "Emotional disconnect." "I don't understand why the medication hasn't stopped that." Slept well, 9.5 hours last night. Denies ongoing abnormal internal stimuli. Thinks the olanzapine has stopped the psychosis. Main complaint today is about her "emotional disconnection." Ms. Acevedo feels her emotions get away from her too quickly. She feels sad when she acts happy. She describes being tearful when she is not sad. We discuss that this may be part of her Bipolar Mood Disorder that will take more time to improve. Also asks about episodes of "spacing out". She is aware of these. She "comes back" immediately when someone addresses her. These do not sound like seizures. I ask her to bring this up with her Neurologist. Objective: Vital Signs Temp Pulse Resp BP Pulse Ox 36.6 C 66 14 94/58 L 95 03/19/17 00:30 03/19/17 00:30 03/19/17 00:30 03/19/17 00:30 03/19/17 00:30 Medications Generic Name Dose Route Start Last Admin Trade Name Freq PRN Reason Stop Dose Admin Diltiazem HCl 120 mg 03/15/17 15:45 03/19/17 10:03 Cardizem Er Q24hr PO 09/11/17 15:44 120 mg DAILY ASHLEIGH Lamotrigine 300 mg 03/18/17 21:00 03/18/17 21:11 Lamictal PO 09/14/17 20:59 300 mg HS ASHLEIGH Pravastatin Sodium 10 mg 03/15/17 21:00 08/27/17 21:11 Pravachol PO 09/11/17 20:59 10 mg HS ASHLEIGH Olanzapine 5 mg 03/16/17 21:00 03/18/17 21:10 Olanzapine PO 09/12/17 20:59 5 mg HS ASHLEIGH Pantoprazole Sodium 40 mg 03/15/17 10:30 03/19/17 10:03 Protonix PO 09/11/17 10:29 40 mg DAILY ASHLEIGH Clonidine 0.1 mg 03/15/17 16:00 03/19/17 09:09 Catapres PO 09/11/17 15:59 Not Given TID [facility] Vitamin B Complex 1,000 mcg 03/18/17 09:00 03/19/17 10:03 Vitamin B12 PO 03/20/17 10:00 1,000 mcg DAILY [facility] Selected Entries 03/18/17 03/18/17 03/18/17 08:00 15:54 16:10 Blood Pressure 112/60 128/65 H 128/65 H 03/18/17 03/19/17 21:11 00:30 Blood Pressure 110/64 94/58 L MSE Awake, alert, cooperative, well groomed, casually dressed. Speech normal in rate and tone. Mood and affect congruent. Thought processes linear, but often vague and impressionistic, lacking in detail. Thought content without abnormal perceptions. Insight and judgment fair. ICD10 Worksheet Patient Problems: Problems Problem Status Onset Acute psychosis Acute Bipolar 1 disorder Acute Chest pain Acute Hallucinations Acute
[2017-03-19] MEDS: ONDANSETRON DISINTEGRATING 4 MG TAB PO PRN (20:14)
[2017-03-19] MEDS: lamoTRIgine 100 MG TAB PO SCH (20:55)
[2017-03-19] MEDS: PRAVASTATIN SODIUM 10 MG TAB PO SCH (20:56)
[2017-03-19] MEDS: OLANZapine 5 MG TAB PO SCH (20:56)
[2017-03-20] MEDS: RANITIDINE HCL 150 MG/10 ML UDCUP PO PRN ×2 (07:28→20:26)
[2017-03-20] MEDS: ONDANSETRON DISINTEGRATING 4 MG TAB PO PRN ×2 (07:28→20:26)
[2017-03-20] MEDS: traMADol 50 MG TAB PO PRN ×2 (07:54→15:36)
[2017-03-20] MEDS: DILTIAZEM CD 120 MG CAP PO SCH (08:53)
[2017-03-20] MEDS: PANTOPRAZOLE SODIUM 40 MG TAB PO SCH (08:54)
[2017-03-20] MEDS: CYANO/VITAMIN B12 1000 MCG TAB PO SCH (08:59)
[2017-03-20] MEDS ORDERED: tiZANidine HCL 2 MG TAB PO PRN (12:12)
--- NOTE | 2017-03-20 12:19 | SOAPPROG ---
SOAP Progress Note Assessment/Plan: Assessment: Bipolar Mood Disorder, MRE Mixed (v manic) Ms. Acevedo continues to improve. She denies any psychosis, and her mood is more stable. We appear to have reached a reasonable balance for her. We will work on discharge for tomorrow. Plan: continue olanzapine to 7.5 mg HS Tramadol for chronic neck pain Continue lamotrigine 300 mg at HS. Discontinue clonidine, does not appear to be necessary tizanidine prn muscle spasm Voluntary status 03/20/17 12:31 Subjective: "My neck is stiff. My back is stiff." Slept well, 8 hours. Had neck and back stiffness this morning into the afternoon hours. Requests we restart tizanidine, which she takes at home. Mood is reasonably stable. Thinks she is ready to discharge home. Would like to go tomorrow to help arrange transportation and appointments. Sleep is good. Energy, concentration, and appetite are all largely normal. Denies abnormal perceptions. No SI. No HI. Objective: Vital Signs Temp Pulse Resp BP Pulse Ox 36.3 C 61 14 111/59 L 94 03/20/17 07:52 03/20/17 07:52 03/20/17 07:52 03/20/17 07:52 03/20/17 07:52 Medications Generic Name Dose Route Start Last Admin Trade Name Freq PRN Reason Stop Dose Admin Clonidine 0.1 mg 03/19/17 21:00 03/20/17 08:55 Catapres PO 09/15/17 20:59 0.1 mg BID ASHLEIGH Diltiazem HCl 120 mg 03/15/17 15:45 03/20/17 08:53 Cardizem Er Q24hr PO 09/11/17 15:44 120 mg DAILY ASHLEIGH Lamotrigine 300 mg 03/18/17 21:00 03/19/17 20:55 Lamictal PO 09/14/17 20:59 300 mg HS ASHLEIGH Olanzapine 7.5 mg 03/19/17 11:19 03/19/17 20:56 Olanzapine PO 09/12/17 20:59 7.5 mg HS ASHLEIGH Pantoprazole Sodium 40 mg 03/15/17 10:30 03/20/17 08:54 Protonix PO 09/11/17 10:29 40 mg DAILY ASHLEIGH Pravastatin Sodium 10 mg 03/15/17 21:00 03/19/17 20:56 Pravachol PO 09/11/17 20:59 10 mg HS ASHLEIGH MSE Awake, alert, cooperative, pleasant with me. Casually dressed, well groomed. Speech normal in rate and tone. Mood/Affect congruent with a reasonable range. Thought processes linear. Denies internal stimuli and does not appear to be responding to internal stimuli. Fair insight, fair judgment. ICD10 Worksheet Patient Problems: Problems Problem Status Onset Acute psychosis Acute Bipolar 1 disorder Acute Chest pain Acute Hallucinations Acute
[2017-03-20] MEDS: OLANZapine 5 MG TAB PO SCH (20:55)
[2017-03-20] MEDS: lamoTRIgine 100 MG TAB PO SCH (20:55)
[2017-03-20] MEDS: PRAVASTATIN SODIUM 10 MG TAB PO SCH (20:55)
[2017-03-21 06:53] VITALS: BP 118/55; PULSE 68; RESP 15; TEMP 98.2; O2SAT 93
[2017-03-21] MEDS: RANITIDINE HCL 150 MG/10 ML UDCUP PO PRN (08:28)
[2017-03-21] MEDS: ONDANSETRON DISINTEGRATING 4 MG TAB PO PRN (08:28)
[2017-03-21] MEDS: DILTIAZEM CD 120 MG CAP PO SCH (08:29)
[2017-03-21] MEDS: PANTOPRAZOLE SODIUM 40 MG TAB PO SCH (08:30)
--- NOTE | 2017-03-21 09:06 | BDS ---
[f rep st] BEHAVIORAL HEALTH DISCHARGE SUMMARY DIAGNOSES: 1. Bipolar mood disorder, most recent episode, manic. 2. Nicotine dependence. 3. Cannabis abuse. 4. History of breast cancer. 5. Chronic back pain. 6. Migraine headaches. 7. History of pulmonary embolus. 8. Reactive airways disease. 9. Hypertension. 10. Gastrointestinal distress. 11. G5, P3, SAB 2. PROCEDURES: None. COMPLICATIONS: None. REVIEW OF CASE: The patient is a 51-year-old female, with bipolar mood disorder. Her bipolar mood disorder, was originally diagnosed in 1995, but she readily states that she thinks it has been present all of her adult life, ever since she finished high school. She is currently followed by the [facility]. She has been stable for many years. She is on a large number of medications, but she has been able to maintain a reasonably stable mood, and some level of functioning in her life as a general rule. Starting earlier this summer, she began to notice some evidence of mood elevation. She was experiencing a decreased need for sleep, and increasing energy. She has been experiencing "whispers" inside her head and seeing flashes out of her peripheral vision. She interprets these stimuli as hallucinations. She is not able to understand what is being said to her in her internal whispers. She is not hearing derogatory statements. She has not been experiencing internal stimuli telling her to commit suicide. She has not had significant suicidal or homicidal thinking as part of this exacerbation of her bipolar mood disorder. She presented for admission to our emergency room. She was thought to be gravely disabled and was initially placed on a 72 hour mental health hold. She was subsequently able to sign an on a voluntary basis. On our unit, we discussed options and decided to first concentrate on seeing if we could help eliminate her abnormal internal stimuli. The whispers she was hearing inside her head were very distressing to her, increasing anxiety and agitation, and possibly contributing to her poor sleep at night. We discussed options and decided to start olanzapine at bedtime. We hoped this would help across multiple different areas. First as an antipsychotic, we thought it would help decrease her auditory hallucinations. Secondly, as an extra mood stabilizer, we hoped that it would help improve mood stability. Next, as a sedating medication, we hoped it would help with sleep. And lastly, it has some anxiolytic properties, particularly if the other properties are working well, and we hoped that it would help reduce her anxiety and help her feel more stable. Fortunately, she had an excellent response to this medicine and it helped all of the factors that I mentioned above. She did notice appetite stimulation, we had discussed this ahead of time. She is watching her intake, and we will watch for weight gain. We also discussed using olanzapine on a temporary basis. She will begin discussing tapering this medicine with her outpatient treatment team at her next followup appointment. She shows very good understanding of these issues. As I mentioned above, she did not have significant suicidal or homicidal thinking prior to her hospital stay or during her hospital stay. She has some uncorrectable risks for dangerousness, including her mental illness and age, but she is not dangerous at the time of discharge. She talks about the future in a positive and forward-looking manner. She cites her children as a reason she would never kill herself. She has good support in the community, and consistently and persistently denied dangerousness during her hospital stay. So I assess her dangerousness as minimal at the time of discharge. She has several medical issues, which we did not address during this hospital stay. She has migraine headaches and significant gastrointestinal distress. She has chronic back pain, which is cervical back pain. She may someday need a cervical spine fusion, but is trying to put this off as long as possible. She did not have any adverse affects to any of her medications. Her outpatient treatment team appears to have found a very good and stable medication regimen. It is somewhat complex, but it has kept her stable for some time now. We look on her current exacerbation as a relatively [id number] exacerbation, and we hope her outpatient treatment team will continue to follow her closely and help her maintain good mood stability. At the time of discharge, we want her to return to her usual outpatient medications, with the addition of 7.5 mg of olanzapine at bedtime is the only medication change for her. Her other mood medications include lamotrigine 300 mg at bedtime. She is also on temazepam 15 mg at bedtime, if needed for sleep. For hypertension she is on diltiazem 120 mg. She has several gastrointestinal medicines as part of her GI cocktail. She is on nystatin. In the hospital, she was switched from her outpatient dose of simvastatin to pravastatin, because we did not have simvastatin on the hospital formulary. She can resume her simvastatin at the time of discharge. All her other medications are resuming her usual outpatient medication regimen. Her followup will be with [facility]. We have a followup appointment the day of discharge, and she has an appointment with her psychiatrist in approximately 1 week following discharge. It was a pleasure taking care of the patient, and we do hope she does well post discharge. /[id number]/MODL [id number]
== END 2017-03-21 11:46 | disposition home or self-care (01) | DRG 885 ==
LOC: BBEH 03-15 02:40
PROVIDERS: ADMIT Internal Medicine Endocrinology, Diabetes & Metabolism; ATTEND Internal Medicine Endocrinology, Diabetes & Metabolism
DX: F31.64 Bipolar disorder, current episode mixed, severe, with psychotic features (principal); F17.210 Nicotine dependence, cigarettes, uncomplicated; F12.10 Cannabis abuse, uncomplicated; I47.1 Supraventricular tachycardia; M50.30 Other cervical disc degeneration, unspecified cervical region; G43.909 Migraine, unspecified, not intractable, without status migrainosus; J45.909 Unspecified asthma, uncomplicated; I10 Essential (primary) hypertension; E78.5 Hyperlipidemia, unspecified; Z86.711 Personal history of pulmonary embolism; Z85.3 Personal history of malignant neoplasm of breast
CPT/HCPCS: 80305; 82607-90; G0480